=== PATIENT | female | born 1985 | race Asian ===

== ENCOUNTER 2020-02-23 17:31 | Emergency (ER) | payer BC ==
[2020-02-23 17:48] VITALS: BP 109/92; PULSE 111; BMI 24.5
== END 2020-02-23 18:57 | disposition home or self-care (01) ==
LOC: JERFT 17:31
DX: U07.1 COVID-19 (principal); J18.9 Pneumonia, unspecified organism
CPT/HCPCS: 71045-TC-FY; 99284-25